=== PATIENT | female | born 1985 | race Caucasian/White ===

== ENCOUNTER 2019-10-23 09:18 | Observation (INO) | payer OTHER, SELFPAY ==
[2019-10-23] VITALS (14 sets, daily range): BP systolic 111–133; BP diastolic 72–84; PULSE 80–119; RESP 12–20; TEMP 35.8–36.1; O2SAT 98–100; BMI 36.8
--- NOTE | ~2019-10-23 | MR_ITS ---
EXAMINATION: MR brain/brain stem wo/w con DATE: 10/23/2019 17:20 INDICATION: Cerebrovascular accident. Seizure. Metastatic breast cancer. TECHNIQUE: Magnetic resonance imaging (MRI) of the brain and brainstem was performed without and with 17 mL MultiHance intravenous contrast. Sequences included sagittal and axial T1-weighted FSE, axial diffusion-weighted FS EPI, axial T2*-weighted GRE, axial T2-weighted FLAIR Propeller, axial T2-weight ed Propeller, coronal T2-weighted FLAIR, and coronal T1-weighted 3D FSPGR. Postcontrast axial and cor onal T1-weighted FSE was obtained. Apparent diffusion coefficient (ADC) maps were created. COMPARISON: Head CT 10/23/2019 FINDINGS: The hippocampi are normal and symmetric. There is focal increased T2-weighted signal intens ity in the left temporal lobe deep white matter. There is no acute ischemic infarct or intracranial h emorrhage. The ventricles are normal in size. The orbits are normal. There is mild mucosal thickening in sphenoid sinus. The mastoid air cells are normal. IMPRESSION: 1. Focal increased T2-weighted signal intensity in the left temporal lobe deep white matter, which ma y be normal for the patient's age as an isolated finding. Reviewed, dictated and finalized at location A. IMPRESSION: 1. Focal increased T2-weighted signal intensity in the left temporal lobe deep white matter, which may be normal for the patient's age as an isolated finding.
--- NOTE | ~2019-10-23 | XR_ITS ---
XR chest 1V portable 10/23/2019 10:09 Indication: CVA. Midline chest pain. Procedure: AP portable chest Comparison: 03/21/2019 Findings: Shallow inspiration with crowding of the pulmonary vasculature. No focal air space disease, pulmonary edema, pleural effusion or suspected pneumothorax. Elevated right diaphragm. Portacatheter tip in the SVC. There are are surgical clips in the right axilla. Impression: 1: No acute cardiopulmonary disease. Reviewed, dictated and finalized at location B. Impression: 1: No acute cardiopulmonary disease.
--- NOTE | ~2019-10-23 | CT_ITS ---
EXAMINATION: CTA brain carotid EXAM DATE: 10/23/2019 10:38 INDICATION: Left-sided hemiparesis. Previous stroke history. TECHNIQUE: Spiral CTA of the carotid arteries was performed with intravenous injection 100 cc of Omn ipaque 350. Axial, coronal, sagittal reformatted images reviewed. Additional reformatted images crea frida on dedicated 3-D workstation. NASCET comparable standard used to assess the degree of arterial s tenosis. Spiral CT angiogram cerebral arteries performed with the same intravenous injection of cont rast. Source images of the brain CTA transferred to dedicated workstation for 3-D rotational image cr eation. Coronal, sagittal maximum intensity pixel images also reviewed. The dose-length product (DL P) for this examination was 974.56 mGy-cm. The exposure was tailored according to patient size, and iterative reconstruction (ASIR) was used as additional dose reduction technique. There is no prior study for comparison. FINDINGS: No cervical carotid arterial sclerosis or stenosis. Carotid siphons are also widely patent. There is no carotid or vertebral basilar arterial dissection or fibromuscular dysplasia. There are n o cerebral artery aneurysms. There is symmetric cerebral artery arborization. The sagittal, transvers e and sigmoid sinuses enhance normally, no venous sinus thrombosis. Internal cerebral veins also enha nce normally. There is no acute intraparenchymal hemorrhage. No evidence of intraparenchymal brain mass lesion. N o evidence of acute infarction. There is no mass effect or midline shift. There is no obstructive hyd rocephalus suspected. There are no extra-axial collections. There are no calvarial acute fractures. IMPRESSION: 1. No cervical arterial dissection or cerebral artery aneurysm. 2. No carotid plaque or stenosis. Reviewed, dictated and finalized at location A.
--- NOTE | ~2019-10-23 | CT_ITS ---
EXAMINATION: CT brain wo con DATE: 10/23/2019 09:23 INDICATION: Code stroke. Presenting with slurred speech, confusion and left-sided weakness. Earlier s eizure. Metastatic cancer. TECHNIQUE: Computed tomography (CT) of the head was performed without intravenous contrast. Sagittal and coronal reconstructions were performed. The mA was adjusted according to patient size. Iterative reconstruction technique was employed. The dose-length product was 605.33 mGy-cm. COMPARISON: None FINDINGS: No acute intracranial hemorrhage, acute infarction or abnormal extra axial fluid collection. Ventricl es are normal and symmetric. No mass/mass effect. The orbits and mastoid air cells are normal. Small amount of bubbly mucus in the dependent right sphenoid sinus. IMPRESSION: 1. Normal brain. No acute intracranial process. Reviewed, dictated and finalized at location A.
--- NOTE | 2019-10-23 09:24 | ECG_ITS ---
Measurements Intervals [place] Rate: 83 P: 5 NM: 137 QRS: -9 QRSD: 102 T: 23 QT: 373 QTc: 439 Interpretive Statements SINUS RHYTHM BASELINE ARTIFACT- I, II, III, AVR, AVL, AVF NORMAL ECG Electronically Signed On 10-23-2019 11:20:35 CDT by Larry Cifuentes D.O.
[2019-10-23 09:36] LABS: Glucose Point of Care 97 (65-105)
--- NOTE | 2019-10-23 09:37 | ED.NEUROSD ---
HPI - Neuro Symptoms/Deficit General Chief Complaint: Neuro Symptoms/Deficit Stated Complaint: CODE CVA Time Seen by Provider: 10/23/19 09:21 Source: RN notes reviewed History of Present Illness HPI Narrative: Patient presents emergency department from work via EMS for possible CVA. The patient was at work when she states she felt lightheaded and then had a syncopal episode followed by seizure-like activity per coworkers for approximately 1 minute. Patient was initially confused when she woke up is become more alert noting numbness and weakness in the left arm and the left leg. Patient states she does have a history of metastatic breast cancer and is currently on chemo with metastasis to the abdomen. She states she does have a history of a mini stroke and July 30, 2019 and was seen for all of these things at [facility] where she currently receives her chemotherapy which last occurred 1 week ago. She states that she was told she had a hole in her heart at that time states she is on no blood thinners. She denies any fevers or chills chest pain shortness of breath abdominal pain or any other symptoms Related Data Allergies Allergy/AdvReac Type Severity Reaction Status Date / Time diphenhydramine Allergy Itching Verified 10/23/19 09:55 [From Nilsa] Review of Systems Review of Systems: Narrative: Gen.: Denies fevers or chills Eyes: Denies eye pain or visual change ENT: Denies congestion Respiratory: Denies shortness of breath or cough CV: Denies chest pain or palpitations GI: Denies abdominal pain nausea, emesis or diarrhea denies burning, urgency, frequency or hematuria Musculoskeletal: Denies back pain or muscle pain Neuro: See HPI Skin: Denies rash Except as documented, all other systems reviewed and negative [facility] Past Medical History Medical History (Updated 10/23/19 @ 13:28 by Matt Chun DO) Breast cancer Social History Social History (Updated 10/23/19 @ 09:43 by Matt Chun DO) Smoking status: Current every day smoker Gender identity (if verbalized by the patient): Female Exam Narrative: Exam Narrative: APPEARANCE: No acute distress, nontoxic, resting in bed HEENT: Normocephalic, atraumatic, OMM, TMs clear bilaterally EYES: PERRL, EOMI NECK: Supple, nontender, full range of motion without pain, no meningismus RESPIRATORY: No respiratory distress, clear to auscultation bilaterally with no rhonchi wheezing or rales CARDIOVASCULAR: RRR s murmur ABDOMINAL: Soft, nontender, nondistended MUSCULOSKELETAL: Moves all extremities. No clubbing, cyanosis or edema. NEURO: A and O ?3, following commands, speech normal, cranial nerves II through XII grossly intact,muscle strength 5 out of 5 right upper and lower extremity muscle strength 4 out of 5 in the left upper and left lower extremity SKIN:: Warm, dry. Normal Color PSYCHIATRIC: Normal affect/mood Course Course Emergency Course: Discussed with patient's coworker was present she called discussed with coworkers were present with the patient when the episode happened. States she had a syncopal episode but does not note tonic-clonic activity Called and discussed with neurology at [facility]. Discussed patient's current symptoms as well as history of breast cancer. At this time recommends TPA and transfer the patient [facility] Had further discussion with the patient who denies any history of mets on the brain. She states on July 29 when she was admitted with her strokelike symptoms she had received TPA at that time and subsequently had a small amount of bleeding intracranially that resolved she states that she had no residual strokes at that time Called and updated Dr. Pinto patient's hemorrhage following TPA. At this time recommends no TPA and believe she is not a candidate. Recommend CTA of the head and neck and if no large vessel occlusion seen no further transfer is needed I called discussed with [facility]
[2019-10-23 09:55] LABS: Hematocrit 23.2 % (37.0-47.0); Hemoglobin 7.8 g/dL (12.0-15.0); Mean Corpuscular HGB Conc 33.6 g/dl (32-36); Mean Corpuscular Hemoglobin 28.9 pg (26-34); Mean Corpuscular Volume 85.9 fl (80-100); Mean Platelet Volume 9.8 fl (7.4-10.4); Platelet Count Result 108 k/mm3 (150-375); Red Cell Distribution Width 16.1 % (11.5-14.5); White Blood Count 7.1 K/mm3 (4.5-10.0)
[2019-10-23 10:08] LABS: Anion Gap 6 mmol/L (8-16); Blood Urea Nitrogen 13 mg/dL (7-17); Calcium 8.4 mg/dL (8.4-10.2); Carbon Dioxide 30 mmol/L (22-30); Chloride 101 mmol/L (98-107); Estimated CRCL calculation 113 ml/min; Estimated Glomerular Filt Rate > 60; Glucose 106 mg/dL (65-105); Potassium 3.2 mmol/L (3.4-5.0); Sodium 137 mmol/L (137-145)
[2019-10-23 10:09] LABS: Total Cells Counted 100
[2019-10-23 10:10] LABS: Band Neutrophils Percent 3 % (0-6); Hypochromasia 1+ (NORMAL); Lymphocytes Absolute Manual 2.91 K/mm3 (1.1-4.5); Lymphocytes Percent Manual 41 % (18-44); Monocytes Absolute Manual 1.56 K/mm3 (0.1-0.90); Monocytes Percent Manual 22 % (3-9); Neutrophils Absolute Manual 2.62 K/mm3 (1.7-7.2); Neutrophils Percent Manual 34 % (46-73); Nucleated Red Blood Cells 4 %
--- NOTE | 2019-10-23 10:14 | PC.NURSE ---
PT STATES SHE HAD A HEAD BLEED WHEN SHE RECEIVED TPA IN JULY,DR LARSON AT BEDSIDE AT THIS TIME.
[2019-10-23 10:16] LABS: Prothrombin Time 13.1 Seconds (11.1-14.7)
[2019-10-23 10:19] LABS: Troponin I < 0.012 ng/mL (0.000-0.034)
--- NOTE | 2019-10-23 10:21 | PC.NURSE ---
Pt to CT scan via stretcher on tele monitor.
[2019-10-23] MEDS: ONDANSETRON INJ 4 MG/2 ML VIAL IV PUSH (12:36)
[2019-10-23] MEDS: ASPIRIN 81 MG CHEWABLE TABLET 324 MG PO (12:36)
--- NOTE | 2019-10-23 15:35 | PM.IMHP ---
H&P: HPI History of Present Illness Date/Time: 10/23/19 15:35 Chief complaint: CVA,BREAST CA Narrative: Mylene Luo is a 33 year old female Who was diagnosed with breast cancer back in 2017. She does receive chemotherapy once a week. Dr. Deondre Figueroa is her oncologist. Who works out of [facility] in [facility]. The patient tells me that she is a DNR. She tells me that she recently had a CVA and was given tPA and had a brain bleed. She states that all of her providers or at [facility] in [facility]. She came here today for possible CVA. She had been at work and started to have some lightheadedness and she had a syncopal episode that was a seizure-like activity that lasted about 1 minutes. This was witnessed by her co-worker. She was initially confused when she woke up. Patient is also nauseated. She denies any fever or chills. The patient tells me that she had a hole in her heart from the chemotherapy. I asked her she had a PFO but she said no that was not it. She has a history of mini-stroke. Patient is ill-appearing. She is currently living with her sister and her sister is taking care of her kids. The patient stated she recently had a blood transfusion and her hemoglobin was over 8. Today it is 7.8 hematocrit 23.2. She was having difficulty answering questions so she called her sister and her sister into the questions for me. Patient me she feels slightly nauseated. Neurology has been consulted. An MRI of the brain has been ordered. Date of service is 10/23/2019. Review of Systems Review of Systems: All systems reviewed & are unremarkable except as noted in HPI and below Constitutional: Constitutional: Reports as per HPI and Reports no additional constitutional complaints Eyes: Eyes: Reports as per HPI and Reports no additional eye complaints ENT: Reports system reviewed and no additional complaints, except as documented and Reports Normal hearing present Cardiovascular: Cardiovascular: Reports no additional cardiovascular complaints Respiratory: Respiratory: Reports no additional respiratory complaints and Reports no additional respiratory complaints Gastrointestinal: Gastrointestinal: Reports as per HPI and Reports no additional gastrointestinal complaints Musculoskeletal: Musculoskeletal: Reports no additional musculoskeletal complaints Integumentary/Breasts: Skin/Breast: Reports system reviewed and no additional complaints, except as docu and Reports as per HPI Neurologic: Reports system reviewed and no additional complaints, except as documented, Reports as per HPI and Reports Normal hearing present Psychiatric: Psychiatric: Reports no additional psychiatric complaints and Reports as per HPI Endocrine: Endocrine: Reports no additional endocrine complaints Hematologic/Lymphatic: Hematologic/Lymphatic: Reports no additional hematologic/lymphatic complaints Allergic/Immunologic: Allergic/Immunologic: Reports no additional allergic/immunologic complaints PMFSH Past Medical History Medical History (Updated 10/23/19 @ 16:07 by Vangie Hanson NP) Breast cancer With chemotherapy. She is on anastrozole Port-A-Cath in place Seizure-like activity Surgical History Surgical History (Updated 10/23/19 @ 16:00 by Vangie Hanson NP) H/O bilateral mastectomy with lymph node removed on the right. History of partial hysterectomy Family History Family History (Updated 10/23/19 @ 16:01 by Vangie Hanson NP) Mother Hypertension Father Heart disease Social History Social History (Updated 10/23/19 @ 16:02 by Vangie Hanson NP) Social History: the patient is single and has 2 children. Her sister's watching her children. She lives with her sister. 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 Lifelong nonsmoker and does not drink alcohol or use marijuana. She does not have a durable power employment law attorney for heal
--- NOTE | 2019-10-23 15:37 | ADMGEN ---
This patient, Mylene Luo, was admitted to IMU Room 211-01. Patient/family oriented to hospital policies and general routines including ID bracelet, bed and alarms, visiting hours, pain management, procedures, bathroom and other care routines, personal items, smoking policy, room service/diet, and visiting hours. Valuables list has been completed. Information on how to activate the Rapid Response Team has been discussed. Patient/Family are encouraged to report perceived risks to care and to ask questions if they do not understand what they are told or what they should do.
[2019-10-23 16:20] LABS: Troponin I < 0.012 ng/mL (0.000-0.034)
[2019-10-23] MEDS: METOCLOPRAMIDE HCL 10 MG TABLET PO ×2 (18:30→20:48)
[2019-10-23] MEDS: LIDOCAINE 5% PATCH 1 PATCH TRANSDERM (18:31)
[2019-10-23 18:39] LABS: Hematocrit 22.2 % (37.0-47.0); Hemoglobin 7.4 g/dL (12.0-15.0)
[2019-10-23 19:07] LABS: Troponin I < 0.012 ng/mL (0.000-0.034)
[2019-10-23] MEDS: PANTOPRAZOLE SODIUM IV 40 MG VIAL IV PUSH (20:48)
[2019-10-23] MEDS: CHLORHEXIDINE GLUCONATE 0.12% ORAL RINSE 473 ML BTL (*BKC) 15 ML SWISH/SPIT (20:48)
[2019-10-23 21:48] LABS: Hematocrit 21.6 % (37.0-47.0); Hemoglobin 7.2 g/dL (12.0-15.0)
[2019-10-24] VITALS (8 sets, daily range): BP systolic 126–135; BP diastolic 74–87; PULSE 70–99; RESP 18–20; TEMP 36.6; O2SAT 97–99
[2019-10-24] MEDS: METOCLOPRAMIDE HCL 10 MG TABLET PO ×2 (05:54→12:42)
[2019-10-24 07:12] LABS: Basophils Percent Auto 0.2 % (0.2-1.2); Eosinophils Percent Auto 0.2 % (0-4.4); Hematocrit 22.1 % (37.0-47.0); Hemoglobin 7.3 g/dL (12.0-15.0); Immature Granulocyte Absolute 1.53 K/mm3 (0.00-0.031); Lymphocytes Absolute Auto 1.52 K/mm3 (0.9-3.2); Lymphocytes Percent Auto 22.9 % (18.3-44.2); Mean Corpuscular Hemoglobin 28.4 pg (26-34); Mean Platelet Volume 9.4 fl (7.4-10.4); Monocytes Absolute Auto 1.3 K/mm3 (0.1-0.6); Monocytes Percent Auto 18.8 % (2.6-8.5); Neutrophils Absolute Auto 2.3 K/mm3 (1.3-6.7); Neutrophils Percent Auto 34.9 % (45.5-73.1); Nucleated Red Blood Cells Absolute Auto 0.5 K/mm3 (0.0-0.012); Nucleated Red Blood Cells Perc 7.8 % (0.0-0.2); Platelet Count Result 105 k/mm3 (150-375); Red Blood Count 2.57 M/mm3 (4.2-5.4); Red Cell Distribution Width 16.6 % (11.5-14.5); White Blood Count 6.7 K/mm3 (4.5-10.0)
[2019-10-24 07:27] LABS: Alanine Aminotransferase 132 U/L (4-35); Albumin Level 3.6 g/dL (3.5-5.1); Alkaline Phosphatase 74 U/L (38-126); Anion Gap 5 mmol/L (8-16); Aspartate Amino Transferase 52 U/L (14-36); Bilirubin,Total 0.8 mg/dL (0.2-1.3); Blood Urea Nitrogen 12 mg/dL (7-17); Calcium 8.5 mg/dL (8.4-10.2); Carbon Dioxide 30 mmol/L (22-30); Chloride 102 mmol/L (98-107); Estimated CRCL calculation 135 ml/min; Estimated Glomerular Filt Rate > 60; Glucose 103 mg/dL (65-105); Magnesium 2.1 mg/dL (1.6-2.3); Potassium 3.7 mmol/L (3.4-5.0); Sodium 137 mmol/L (137-145)
[2019-10-24] MEDS: ANASTROZOLE (*CHEMO) 1 MG TABLET PO (09:06)
[2019-10-24] MEDS: PANTOPRAZOLE SODIUM IV 40 MG VIAL IV PUSH (09:07)
[2019-10-24] MEDS: CHLORHEXIDINE GLUCONATE 0.12% ORAL RINSE 473 ML BTL (*BKC) 15 ML SWISH/SPIT (09:07)
[2019-10-24] MEDS: MORPHINE SULFATE (*CRX) 15 MG TAB IR PO (09:07)
--- NOTE | 2019-10-24 09:20 | WPDNEUROLOGY ---
Neurology EEG Report General Information Date of Study: 10/24/19 TEST EEG DIAGNOSIS Possible seizures. Patient reported she was at work yesterday and woke up in an ambulance. She was told she has had a seizure. Patient has stage IV breast cancer and is going through chemotherapy. Also had a small stroke about 6 months ago. CONDITION OF RECORDING Awake drowsy and sleep EEG NUMBER [id number] CLINICAL HISTORY as mentioned above patient had a seizure while in the ambulance EEG DESCRIPTION basic resting occipital frequency consists of poorly organized low to medium voltage 8 to 9 hertz per 2nd alpha admixed with a large amount of low-voltage 15 to 18 hertz per 2nd beta during drowsiness low-voltage beta activity seen diffusely admixed with waxing and waning posterior alpha rhythm. Intermittent regular EKG artifact is seen. Bilateral symmetrical sleep activity seen during brief periods of sleep. Non paroxysmal. Nonfocal. Nonlateralizing. IMPRESSION No significant abnormalities noted
--- NOTE | 2019-10-24 10:11 | WPDNEURCNPN ---
Assessment and Plan Additional Plan considering that she has negative MRI of the brain and negative CTA with obviously no metastatic disease and personally read the EEG which is normal I will be reluctant to start her on the anti convulsions I will discuss with our thought early and follow her in the office if she wants to in the meantime if any question arises please do not hesitate to contact me at this stage she can be discharged with follow-up as an outpatient Consult date: 10/24/19 Time Seen: 10:10 HPI: Mylene Luo is a 33 year old femaleHas been admitted to the hospital for the possible CVA as per the information available she was at work when she became lightheaded and had a syncopal episode which were described as seizure-like activity lasting for only 1 minutes and was witnessed by her co-worker initially she was notably confused when she woke up she was nauseated she was having difficulties in answering the questions patient does have ongoing history of cancer of the breast diagnosed in 2017 for which she received chemotherapy once a week under the supervision of Dr. Deondre Figueroa. ADH nearly she reported to the physician she has a hole in her heart history of mini-stroke at present she is living with her sisters and recently has received blood transfusion as his hemoglobin and was only more than 8 it has been documented that she has breast cancer with chemotherapy at present she is on anastrozole has a Port-A-Cath in place has undergone bilateral mastectomy with lymph node removal on the right side and has also undergone partial hysterectomy evaluation up until now includes the MRI of the brain and brainstem which revealed only focal increased T2 weighted signal intensity in the left temporal lobe deep white matter but that is an isolated finding head neck CTA revealed no evidence of cervical artery dissection or aneurysm chest x-ray is negative routine lab studies documents her to be anemic an EEG has been read by myself which is not significant Review of Systems Review of Systems: All systems reviewed & are unremarkable except as noted in HPI and below PMFSH Past Medical History Medical History (Updated 10/23/19 @ 16:07 by Vangie Hanson NP) Breast cancer With chemotherapy. She is on anastrozole Port-A-Cath in place Seizure-like activity Surgical History Surgical History (Updated 10/23/19 @ 16:00 by Vangie Hanson NP) H/O bilateral mastectomy with lymph node removed on the right. History of partial hysterectomy Family History Family History (Updated 10/23/19 @ 16:01 by Vangie Hanson NP) Mother Hypertension Father Heart disease Social History Social History (Updated 10/23/19 @ 16:02 by Vangie Hanson NP) Social History: the patient is single and has 2 children. Her sister's watching her children. She lives with her sister. 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 Lifelong nonsmoker and does not drink alcohol or use marijuana. She does not have a durable power personal injury attorney for healthcare. But the sisters answering questions for her. Smoking status: Never smoker Second hand tobacco smoke exposure: No Alcohol intake: never Substance use: never Gender identity (if verbalized by the patient): Female Spiritual care concerns: No Meds Home Medications and Allergies Home Medications Medication Instructions Recorded Confirmed Type acetaminophen 650 mg PO Q6H PRN 10/23/19 10/23/19 History anastrozole 1 mg PO DAILY 10/23/19 10/23/19 History anastrozole 1 mg PO DAILY 10/23/19 10/23/19 History chlorhexidine gluconate 15 ml PO BID 10/23/19 10/23/19 History hydrocortisone acetate [Anucort-HC] 25 mg ID Q12H PRN 10/23/19 10/23/19 History lidocaine [Blue-Emu Lidocaine 1 patch TOPICAL DAILY PRN 10/23/19 10/23/19 History Patch] metoclopramide HCl 10 mg PO DAILY 10/23/19 10/23/19 History morphine 15 mg PO Q4H PRN 10/23/19 10/23/19 History ondansetron HCl
[2019-10-24] MEDS: LIDOCAINE 5% PATCH 1 PATCH TRANSDERM (10:12)
[2019-10-24] MEDS: CENTRAL LINE FLUSH 10 ML IV PUSH (12:44)
--- NOTE | 2019-10-24 13:51 | PM.DS ---
DS: Admitting Diagnosis Admitting Diagnosis Admitting Diagnosis: CVA,BREAST CA DS: Discharge Diagnosis Discharge Diagnosis (1) Observed seizure-like activity: Code(s): R56.9 - Unspecified convulsions Status: Acute Assessment and Plan: Patient was found at work to have fallen on the ground and reported to have a seizure like activity. She has never had a seizure in her past. Performed an EEG which showed no acute abnormality or signs of seizures. An MRI was completed which showed no stroke or metastatic disease. Neurology evaluated the patient and did not want to start her on any medications at this time. They would like for to follow-up in the office upon discharge for further evaluation and treatment. (2) Anemia: Code(s): D64.9 - Anemia, unspecified Status: Chronic Assessment and Plan: Chronic anemia secondary to underlying metastatic disease. Patient sees an oncologist and every week she has labs drawn who gives her transfusions when she needs them and is less than 7. Currently at this time her hemoglobin is 7.3 and she does not require transfusion and is asymptomatic. She follows up with her oncologist on Monday and will have further labs drawn and they will continue monitoring her blood counts. (3) Breast cancer: Code(s): C50.919 - Malignant neoplasm of unspecified site of unspecified female breast Status: Chronic Assessment and Plan: We continued with her anastrozole. Her oncologist's is mentioned above and he is at [facility]. I asked the patient she wanted to see our oncologists here and she said no thank you. She will follow-up with her oncologist as an outpatient on Monday. (4) Tachycardia: Code(s): R00.0 - Tachycardia, unspecified Status: Acute Assessment and Plan: Patient was admitted to IMU and placed on telemetry. She is resting comfortably with a normal heart rate in the 80s-90s but she does become tachycardic at times with exertion. She denies any shortness of breath, dyspnea on exertion, calf pain, leg swelling, pleuritic chest pain, or any other symptoms that would warrant her to potentially have a blood clot. Will have her follow-up with her oncologist as an outpatient and primary care provider. Told her to the ER if she has any new or worsening symptoms or concerns. DS: Summary Hospital Course Reason for hospitalization: Patient is a 33-year-old woman with a history of metastatic breast cancer diagnosed in 2017, who is currently on chemotherapy, who seeks older care at [facility], who presented to the emergency room after having a possible seizure at work prior to arrival. Patient was just discharged from [facility] a few days prior after having acute anemia, needing blood transfusions, and states that after she was discharged she has been very busy with her kids and going back to work she believe she over did it. Vitals showed temperature 97?, blood pressure 120/82, heart rate 84, respiratory rate 15, oxygen saturation 99% on room air. Initial labs showed normocytic anemia with a hemoglobin of 7.8, hematocrit 23%, thrombocytopenia 108. BMP showed hypokalemia at 3.2, negative troponins x3. CT head showed Normal brain, no acute intracranial process. Chest x-ray showed no acute cardiopulmonary disease. CTA head and neck showed No cervical arterial dissection or cerebral artery aneurysm. No carotid plaque or stenosis. MRI showed Focal increased T2-weighted signal intensity in the left temporal lobe deep white matter, which may be normal for the patient's age as an isolated finding. She was admitted into the hospital for further workup and evaluation of possible seizure activity, neurology was consulted. She
[2019-10-24 14:55] LABS: Hematocrit 23.7 % (37.0-47.0); Hemoglobin 7.6 g/dL (12.0-15.0)
== END 2019-10-24 15:10 | disposition home or self-care (01) ==
LOC: ANHED 13:28 → ANHIMU 13:45
PROVIDERS: Nurse Practitioner; Admitting Provider Internal Medicine; Emergency Provider Emergency Medicine; PCP Internal Medicine Medical Oncology; Visit Provider Family Medicine
DX: R56.9 Unspecified convulsions (principal); D63.8 Anemia in other chronic diseases classified elsewhere; C79.89 Secondary malignant neoplasm of other specified sites; C50.919 Malignant neoplasm of unspecified site of unspecified female breast; R00.0 Tachycardia, unspecified; Z86.73 Personal history of transient ischemic attack (TIA), and cerebral infarction without residual deficits; F17.210 Nicotine dependence, cigarettes, uncomplicated; Z66 Do not resuscitate
CPT/HCPCS: 36415; 70450; 70496; 70498; 70553; 71045; 80048; 80053; 82948; 83735; 84443; 84484; 85014; 85018; 85025; 85610; 85730; 93005; 95816; 96374; 96375; 99285; A4248; A9270; A9577; C9113; G0378; G0379; J1642; J2405; Q9967